=== PATIENT | female | born 1935 | race Caucasian/White ===

== ENCOUNTER 2021-12-08 13:02 | Inpatient (IN) | payer OTHER ==
[~2021-12-08] VITALS: Ht 152.4 cm; Wt 49.9 kg
[2021-12-08] MEDS ORDERED: PANTOPRAZOLE SODIUM 40 MG VIAL IV ONE (13:30)
[2021-12-08] MEDS ORDERED: FAMO-132 GT (13:44)
[2021-12-08] MEDS ORDERED: BENA20TA9 GT (13:44)
[2021-12-08] MEDS ORDERED: AMLO10TA59 GT (13:44)
[2021-12-08] MEDS ORDERED: BLOO-1672 MC (13:44)
[2021-12-08] MEDS ORDERED: BISA10SU61 RC (13:44)
[2021-12-08] MEDS ORDERED: BISO5TAB20 GT (13:44)
[2021-12-08] MEDS ORDERED: ACET-2154 GT (13:44)
[2021-12-08] MEDS ORDERED: NA P133E RC (13:44)
[2021-12-08] MEDS ORDERED: GLUC1KIT IM (13:44)
[2021-12-08] MEDS ORDERED: MULT-594 GT (13:44)
[2021-12-08] MEDS ORDERED: MAGN400O6 GT (13:44)
[2021-12-08] MEDS ORDERED: ATOR20TA GT (13:44)
[2021-12-08] MEDS ORDERED: INSU100V7 SQ (13:44)
[2021-12-08] MEDS ORDERED: PANTOPRAZOLE SODIUM IV 80 MG in IV DEXTROSE 5% 500 ML IV ONE (13:45)
[2021-12-08 14:11] LABS: *OCCULT BLOOD STOOL NEGATIVE (NEGATIVE)
[2021-12-08 14:12] LABS: HEMATOCRIT 28.1 % (31.2-41.9); MEAN CORPUSCULAR VOLUME 88.6 fL (75.5-95.3); PLATELET COUNT (AUTO) 218 K/uL (179-408)
[2021-12-08 14:18] LABS: CREATININE 0.9 mg/dL (0.6-1.3); POTASSIUM 3.6 mmol/L (3.5-5.1)
[2021-12-08 14:27] LABS: BILIRUBIN,DIRECT 0.1 mg/dL (0.0-0.2); BILIRUBIN,TOTAL 0.4 mg/dL (0.2-1.0)
[2021-12-08] MEDS ORDERED: PANTOPRAZOLE SODIUM 40 MG VIAL ONE (14:40)
--- NOTE | 2021-12-08 14:55 | NUR ---
Per MD order, attempted to insert in-and-out catheter to get urine sample, unsuccessful. MD informed.
[2021-12-08] MEDS ORDERED: CEFTRIAXONE /D5W 50ML IVPB **ER PYXIS IV ONE (15:44)
[2021-12-08] MEDS ORDERED: IV NS 1000 ML 1,000 ML IV ONE (15:45)
[2021-12-08] MEDS ORDERED: CEFTRIAXONE 1 G in IV DEXTROSE 5% 50 ML IV ONE (15:45)
[2021-12-08 15:49] LABS: ALANINE AMINOTRANSFERASE 24 U/L (14-59); ALKALINE PHOSPHATASE 67 U/L (50-136); ASPARTATE AMINOTRANSFERASE 13 U/L (15-37); CARBON DIOXIDE 27 mmol/L (21-32); CHLORIDE 111 mmol/L (98-107); GLUCOSE 142 mg/dL (74-106); LIPASE 37 U/L (73-393); UREA NITROGEN, BLOOD 61 mg/dL (7-18)
[2021-12-08] MEDS ORDERED: INSULIN REGULAR, HUMAN 300 UNITS/3 ML VIAL SQ PRN (16:00)
[2021-12-08] MEDS ORDERED: INSULIN REGULAR, HUMAN 300 UNIT/3 ML VIAL SQ PRN (16:00)
[2021-12-08] MEDS ORDERED: ACETAMINOPHEN 325 MG TABLET GT PRN (16:00)
[2021-12-08] MEDS ORDERED: MAGNESIUM HYDROXIDE 30 ML LIQUID UDC GT PRN (16:00)
[2021-12-08] MEDS ORDERED: BISACODYL 10 MG SUPP.RECT RC PRN (16:00)
[2021-12-08] MEDS ORDERED: ONDANSETRON 4 MG/2 ML VIAL IV PRN (16:00)
[2021-12-08] MEDS ORDERED: REMEDY ESSENTIAL ZINC PASTE 113 GM TP PRN (16:00)
[2021-12-08] MEDS ORDERED: DEXTROSE 50% 50 ML DISP.SYRIN IV PRN (16:00)
--- NOTE | 2021-12-08 20:45 | NUR ---
Received admission report from Mario from ER.
--- NOTE | 2021-12-08 20:48 | NUR ---
report given to Dominick, pt will go to room 321.
[2021-12-08] MEDS: BLOOD SUGAR DIAGNOSTIC 1 EACH STRIP VI SCH (21:00)
--- NOTE | 2021-12-08 21:25 | NUR ---
Received patient via gurney from ER. Awake, non coherent, not in distress. Transferred to bed with 4 people assist. Made comfortable in bed. Left wrist IV intact and patent with continuos Protonix IV infusing at 50 cc/hour as ordered. Routine admission care done. Plan of care initiated.
[2021-12-08 21:30] VITALS: BP 123/66
[2021-12-08 21:45] VITALS: BP 123/66
[2021-12-08] MEDS: PANTOPRAZOLE SODIUM 40 MG VIAL IV SCH (23:29)
[2021-12-08] MEDS: IV D5 1/2 NS 1000 ML 1,000 ML IV PRN (23:33)
[2021-12-09] VITALS (8 sets, daily range): BP systolic 108–144; BP diastolic 37–71
[2021-12-09] MEDS: BLOOD SUGAR DIAGNOSTIC 1 EACH STRIP VI SCH (06:04)
[2021-12-09 06:15] LABS: HEMATOCRIT 21.7 % (31.2-41.9); MEAN CORPUSCULAR HEMOGLOBIN 30.2 uug (24.7-32.8); MEAN CORPUSCULAR VOLUME 89.6 fL (75.5-95.3); PLATELET COUNT (AUTO) 165 K/uL (179-408)
--- NOTE | 2021-12-09 06:18 | NUR ---
Received Hgb critical value result from the lab+ 7.3. Patricia Griffith made aware.
--- NOTE | 2021-12-09 06:25 | NUR ---
Slept well. No active bleeding noted. No nausea and vomiting. No s/s of pain/discomforts presented. Continue IVF as ordered. Safety measures and fall precaution maintained. Continue care as planned.
[2021-12-09 06:42] LABS: CREATININE 0.9 mg/dL (0.6-1.3); MAGNESIUM 1.8 mg/dL (1.8-2.4); PHOSPHOROUS 2.4 mg/dL (2.5-4.9); POTASSIUM 3.3 mmol/L (3.5-5.1)
--- NOTE | 2021-12-09 07:59 | NUR ---
Awakens easily, no acute distress noted. IVF infusing as ordered. Gt intact and patent, no residual. Abdominal binder put on last night dt pulling. Currently npo. Safety maintained. Kept comfortable. Needs attended.
[2021-12-09] MEDS ORDERED: BENAZEPRIL HCL 20 MG TABLET GT SCH (09:00)
[2021-12-09] MEDS: PANTOPRAZOLE SODIUM 40 MG VIAL IV SCH ×2 (09:34→20:15)
[2021-12-09 10:14] LABS: THYROID STIMULATING HORMONE 1.405 mIU/mL (0.358-3.740)
--- NOTE | 2021-12-09 11:00 | NUR ---
Received call from Fouzia at OR and was made aware Dr. Barrera is on the case, will picker tender the patient at 1230pm for egd. Gave report to fouzia.
--- NOTE | 2021-12-09 12:37 | NUR ---
Picked up by 2 OR nurses for surgery.
[2021-12-09] MEDS ORDERED: PROPOFOL 200 MG/20 ML BOTTLE ONE (13:30)
--- NOTE | 2021-12-09 13:40 | NUR ---
Came back from surgery via gurney accompanied by 2 OR nurses no acute distress. IVF infusing. No ss of pain or sob noted. Order to resume tf is noted.
[2021-12-09] MEDS: IV D5 1/2 NS 1000 ML 1,000 ML IV PRN (13:44)
[2021-12-09] MEDS ORDERED: POTASSIUM CHLORIDE 20 MEQ POWDER PACKET GT ONE (14:00)
[2021-12-09 15:56] LABS: HEMATOCRIT 21.2 % (31.2-41.9)
--- NOTE | 2021-12-09 16:31 | NUR ---
Relayed hgb [address] Nathan with order to transfuse 1 unit prbc.
[2021-12-09] MEDS ORDERED: POTASSIUM PHOSPHATE MM 7.5 MMOL in IV NORMAL SALINE 97.5 ML IV ONE (18:00)
--- NOTE | 2021-12-09 18:35 | NUR ---
Per Cele at lab, someone will come to release blood at 730pm.
--- NOTE | 2021-12-09 18:36 | NUR ---
Resting well. No bleeding. No nvd. no sob noted. Safety maintained.
--- NOTE | 2021-12-09 19:00 | NUR ---
received patient in bed. awake speak ghanaian with confusion noted, no s/s of pain at this time, kept clean and dry, kept comfortable. cont to monitor.
[2021-12-09] MEDS ORDERED: DONE10TA44 GT (19:53)
[2021-12-09] MEDS ORDERED: MEMA10TA GT (19:55)
[2021-12-09] MEDS ORDERED: GLIP10TA11 PO (19:58)
--- NOTE | 2021-12-09 22:32 | NUR ---
Started blood transfusion tolerate well, no adverse reaction noted, no coughing no congestion noted, cont to monitor.
--- NOTE | 2021-12-09 22:50 | NUR ---
Patient awake verbally responsive speak Telugu, no meaningful conservation according to aerial photograph interpreter, on ongoing blood transfusion, no adverse reaction noted, v/s stable, cont to monitor.
[2021-12-10 00:02] VITALS: BP 123/55
[2021-12-10 00:37] VITALS: BP 125/50
--- NOTE | 2021-12-10 00:38 | NUR ---
transfused 1 unit PRBC tolerate well no sob no chest pain, no congestion noted, no adverse reaction noted, cont to monitor. v/s stable.
[2021-12-10 04:00] VITALS: BP 112/60
[2021-12-10] MEDS: IV D5 1/2 NS 1000 ML 1,000 ML IV PRN (05:26)
--- NOTE | 2021-12-10 06:39 | NUR ---
Patient asleep but arousable, no sob no chest pain. Patient has no complain of pain, Patient has no vomiting noted at this time, cont to monitor.
[2021-12-10 06:52] LABS: HEMATOCRIT 28.4 % (31.2-41.9); MEAN CORPUSCULAR HEMOGLOBIN 30.8 uug (24.7-32.8); MEAN CORPUSCULAR VOLUME 89.6 fL (75.5-95.3); PLATELET COUNT (AUTO) 171 K/uL (179-408)
[2021-12-10 07:35] LABS: BILIRUBIN,TOTAL 0.7 mg/dL (0.2-1.0); CREATININE 0.6 mg/dL (0.6-1.3); PHOSPHOROUS 3.1 mg/dL (2.5-4.9); POTASSIUM 3.2 mmol/L (3.5-5.1); TOTAL PROTEIN, SERUM 6.2 g/dL (6.4-8.2)
[2021-12-10 08:07] LABS: MAGNESIUM 1.8 mg/dL (1.8-2.4)
--- NOTE | 2021-12-10 08:55 | NUR ---
Critical lab value for glucose: 48. Gave patient orange juice with 3 sugar packets. Glucose now at 74.
[2021-12-10] MEDS ORDERED: PANTOPRAZOLE SODIUM 40 MG TABLET.DR PO SCH (09:00)
[2021-12-10] MEDS: PANTOPRAZOLE ORAL SUSPENSION 40 MG SUSPDR.PKT GT SCH ×2 (09:28→20:39)
[2021-12-10] MEDS ORDERED: POTASSIUM CHLORIDE 20 MEQ POWDER PACKET GT ONE (10:00)
[2021-12-10] MEDS ORDERED: SOD FERRIC GLUC COMPLX/SUCROSE 125 MG in IV NORMAL SALINE 100 ML IV ONE (10:00)
[2021-12-10 12:00] VITALS: BP 141/71
--- NOTE | 2021-12-10 14:19 | NUR ---
Spoke to Dr. Nathan regarding patient's G-Tube, and feeding regimen. Called patient's daughter in hopes to acquire information regarding patient's feedings that are comparable to ours, and rate of feeding. Informed rough patcher and stated that she was on the case and would inform me of patient's regimen for feedings. Will endorse information to PM nurse.
[2021-12-10] MEDS ORDERED: GLUCERNA 1.2 1000ML LIQUID GT PRN (14:45)
[2021-12-10 16:00] VITALS: BP 141/69
--- NOTE | 2021-12-10 16:00 | NUR ---
Started tube feeding at 10cc/hr. Goal to increase by 10cc every 8-10 hours. Next time to increase rate between the times of 4391-2491 12/11/21. Will endorse information to PM nurse.
--- NOTE | 2021-12-10 18:08 | NUR ---
Patient tolerated care well throughout shift with no complaints of pain or distress. Patient's IV site patent and intact. G-Tube line patent and intact and currently running 10cc/hr until 4710-8408, when increase in rate by 10 cc/hr is allowed for overall goal rate of 55cc/hr. Patient visited by family during shift and informed. Bed left in lowest position. Comfort measures provided. Will endorse information to PM nurse.
[2021-12-10 20:45] VITALS: BP 144/49
--- NOTE | 2021-12-11 00:22 | NUR ---
Increased feeding to 20 cc/hr. Able to tolerate feeding. No residual noted. Will continue to monitor.
--- NOTE | 2021-12-11 01:00 | NUR ---
Received report from RN assigned, patient awake an alert, confused, no signs of respiratory distress, with G-tube feeding at 20cc/hr, to increase by 10cc every 8-10 hours due at 0800 with the goal of 55cc/hour. Repositioned for comfort, safety measures provided.
[2021-12-11 04:52] VITALS: BP 144/56
--- NOTE | 2021-12-11 06:28 | NUR ---
Slept well, not in respiratory distress, alert and opening her eyes with voice, On G-tube feeding Glucerna 1.2 currently at 20cc/hour to increase by 10cc/hr between 8am-10am. Repositioned for comfort, on semi fowlers position. In fair condition.
[2021-12-11 06:41] LABS: HEMATOCRIT 27.6 % (31.2-41.9); MEAN CORPUSCULAR HEMOGLOBIN 31.3 uug (24.7-32.8); MEAN CORPUSCULAR VOLUME 89.1 fL (75.5-95.3); PLATELET COUNT (AUTO) 186 K/uL (179-408)
[2021-12-11 07:24] LABS: CREATININE 0.7 mg/dL (0.6-1.3); MAGNESIUM 1.8 mg/dL (1.8-2.4); PHOSPHOROUS 3.3 mg/dL (2.5-4.9)
--- NOTE | 2021-12-11 08:09 | NUR ---
RECEIVED CRITICAL VALUE FROM LAB. GLUCOSE 45. GAVE 1 CUP ORANGED JUICE WITH 3 PACK OF SUGAR WILL RECHECK IN 30MINS
[2021-12-11] MEDS: PANTOPRAZOLE ORAL SUSPENSION 40 MG SUSPDR.PKT GT SCH (09:42)
--- NOTE | 2021-12-11 09:45 | NUR ---
ORANGE JUICE AND PACKETS OF SUGARS EFFECTI VE. RECHECKED BLOOD SUGAR 90MG/DL
[2021-12-11 11:32] VITALS: BP 122/55
[2021-12-11] MEDS ORDERED: BENA20TA9 GT (11:44)
[2021-12-11] MEDS ORDERED: PANT40SU2 GT (11:44)
[2021-12-11] MEDS ORDERED: ACET325T53 GT (11:44)
[2021-12-11] MEDS ORDERED: MENT113O TP (11:44)
[2021-12-11 15:11] VITALS: BP 128/44
--- NOTE | 2021-12-11 15:21 | NUR ---
Patient was picked up by ambulance to her previous facility - [facility]. Patient had no pain, no distress and was clapping her hands and laughing while was picked up by the ambulance. Vitals were stable at the time of discharge. BP 122/55, pulse 70, resp 18, temp 98.1, O2 sat 96 on RA.
== END 2021-12-11 15:20 | DRG 380 ==
LOC: ER 13:02 → MEDSURG3 21:01
PROVIDERS: ADMIT Internal Medicine; ATTEND Internal Medicine
PROC: 30233N1 Transfusion of Nonautologous Red Blood Cells into Peripheral Vein, Percutaneous Approach (ICD-10-PCS; principal; 2021-12-09)
PROC: 0DB68ZX Excision of Stomach, Via Natural or Artificial Opening Endoscopic, Diagnostic (ICD-10-PCS; 2021-12-09)
DX: K22.11 Ulcer of esophagus with bleeding (principal); E43 Unspecified severe protein-calorie malnutrition; N17.0 Acute kidney failure with tubular necrosis; G93.41 Metabolic encephalopathy; E87.0 Hyperosmolality and hypernatremia; D68.59 Other primary thrombophilia; D62 Acute posthemorrhagic anemia; K44.9 Diaphragmatic hernia without obstruction or gangrene; Z93.1 Gastrostomy status; E11.9 Type 2 diabetes mellitus without complications; E87.6 Hypokalemia; F03.90 Unspecified dementia, unspecified severity, without behavioral disturbance, psychotic disturbance, mood disturbance, and anxiety; I10 Essential (primary) hypertension; F25.9 Schizoaffective disorder, unspecified; K29.70 Gastritis, unspecified, without bleeding; M19.90 Unspecified osteoarthritis, unspecified site; Z79.4 Long term (current) use of insulin; J44.9 Chronic obstructive pulmonary disease, unspecified; Z20.822 Contact with and (suspected) exposure to COVID-19; R13.10 Dysphagia, unspecified; D50.9 Iron deficiency anemia, unspecified; Z79.84 Long term (current) use of oral hypoglycemic drugs
CPT/HCPCS: 36415; 71045; 83550; 83605; 83690; 83735; 84100; 84443; 84484; 85018; 85025; 85730; 86850; 86900; 86901; 86920; 87040; 93005; A4663; C1758; C9113; G0378; J0696; J1815; J2916; J3490; J7040; J7060; P9016